=== PATIENT | male | born 1945 | race Caucasian/White ===

== ENCOUNTER → 2020-05-20 | Outpatient (REF) | payer MEDICARE, OTHER ==
[2020-05-20 16:25] LABS: BASO # 0.1 10^3/uL (0.0-0.2); BASO % 0.6 % (0.0-1.0); EOS # 0.3 10^3/uL (0.0-0.5); EOS % 3.5 % (0.0-3.0); HEMATOCRIT 38.8 % (42.0-52.0); HEMOGLOBIN 13.1 g/dl (13.5-17.5); LYMPH # 1.9 10^3/uL (1.5-5.0); MEAN CORPUSCULAR HEMOGLOBIN 32.2 pg (27.0-33.0); MEAN CORPUSCULAR HGB CONC 33.8 g/dl (32.0-36.5); MEAN CORPUSCULAR VOLUME 95.3 fl (80.0-96.0); MONO # 0.7 10^3/uL (0.0-0.8); MONO % 8.1 % (0.0-5.0); NEUTROPHILS # 5.3 10^3/uL (1.5-8.5); NEUTROPHILS % 64.6 % (36.0-66.0); PLATELET COUNT, AUTOMATED 171 10^3/uL (150-450); RED BLOOD COUNT 4.07 10^6/uL (4.30-6.10); WHITE BLOOD COUNT 8.3 10^3/uL (4.0-10.0)
[2020-05-20 17:04] LABS: ALBUMIN 3.8 GM/DL (3.2-5.2); BILIRUBIN,TOTAL 0.4 MG/DL (0.2-1.0); CALCIUM LEVEL 9.3 MG/DL (8.8-10.2); CHOLESTEROL RISK RATIO 3.837 (<5); CREATININE FOR GFR 1.62 MG/DL (0.70-1.30); FREE T4 0.97 NG/DL (0.76-1.46); GLOMERULAR FILTRATION RATE 44.8 (>42); POTASSIUM SERUM 4.6 MEQ/L (3.5-5.1); THYROID STIMULATING HORMONE 0.608 uIU/ML (0.358-3.740); TOTAL PROTEIN 6.9 GM/DL (6.4-8.2)
[2020-05-20 17:13] LABS: MAU/CREAT RATIO 138.6 MCG/MG (0.0-30.0)
== END ==
LOC: M SFHCADAM 15:02
PROVIDERS: ATTEND Physician Assistant
DX: E11.9 Type 2 diabetes mellitus without complications (principal); I10 Essential (primary) hypertension; E78.00 Pure hypercholesterolemia, unspecified; Z12.5 Encounter for screening for malignant neoplasm of prostate; Z23 Encounter for immunization
CPT/HCPCS: 80053; 80061; 82043; 83036; 84439; 84443; 85025; 90732; G0009; G0103; G0463

== ENCOUNTER → 2020-10-06 | Outpatient (REF) | payer MEDICARE, OTHER ==
[2020-10-06 14:03] LABS: CALCIUM LEVEL 9.8 MG/DL (8.8-10.2); CREATININE FOR GFR 1.75 MG/DL (0.70-1.30); POTASSIUM SERUM 4.4 MEQ/L (3.5-5.1)
== END ==
LOC: M SFHCADAM 08:41
PROVIDERS: ATTEND Physician Assistant
DX: E11.9 Type 2 diabetes mellitus without complications (principal); I10 Essential (primary) hypertension

== ENCOUNTER → 2020-11-09 | Outpatient (CLI) | payer MEDICARE, OTHER ==
--- NOTE | 2020-11-09 14:00 | REP ---
INDICATION: STAGE 3B CHRONIC KIDNEY DISEASE. COMPARISON: None. TECHNIQUE: Urinary tract sonography. FINDINGS: Scanning at the level of the urinary bladder shows no abnormality. Urinary bladder had just been emptied prior to scanning. Renal cortical echogenicity pattern is normal bilaterally and contours are smooth. There is no evidence of hydronephrosis on either side. There is a large cyst at the lower pole the right kidney measuring 8.9 x 6.6 x 7.6 cm.. Incidental note is made of cholelithiasis. The right kidney measures 11.0 x 4.5 x 4.1 cm exclusive of the cyst.. Left renal dimensions are 10.6 x 3.8 x 4.8 cm. IMPRESSION: There is an 8.9 cm cyst in the lower pole the right kidney. Cholelithiasis is observed. Otherwise negative urinary tract sonography.. <Electronically signed by Ismael Ramirez > 11/09/20 0521
== END ==
LOC: M RAD 09:46
PROVIDERS: ATTEND Physician Assistant
DX: N28.1 Cyst of kidney, acquired (principal); K80.20 Calculus of gallbladder without cholecystitis without obstruction; N18.32 Chronic kidney disease, stage 3b

== ENCOUNTER → 2020-11-10 | Outpatient (REF) | payer MEDICARE, OTHER ==
[2020-11-10 12:51] LABS: HEMATOCRIT 39.4 % (42.0-52.0); HEMOGLOBIN 13.6 g/dl (13.5-17.5); MEAN CORPUSCULAR HEMOGLOBIN 32.5 pg (27.0-33.0); MEAN CORPUSCULAR HGB CONC 34.5 g/dl (32.0-36.5); MEAN CORPUSCULAR VOLUME 94.3 fl (80.0-96.0); PLATELET COUNT, AUTOMATED 172 10^3/uL (150-450); RED BLOOD COUNT 4.18 10^6/uL (4.30-6.10); WHITE BLOOD COUNT 7.2 10^3/uL (4.0-10.0)
[2020-11-10 13:25] LABS: CALCIUM LEVEL 9.4 MG/DL (8.8-10.2); CREATININE FOR GFR 1.52 MG/DL (0.70-1.30); GLOMERULAR FILTRATION RATE 48.1 (>42); POTASSIUM SERUM 4.2 MEQ/L (3.5-5.1)
== END ==
LOC: M SFHCADAM 08:23
PROVIDERS: ATTEND Physician Assistant
DX: I12.9 Hypertensive chronic kidney disease with stage 1 through stage 4 chronic kidney disease, or unspecified chronic kidney disease (principal); N18.32 Chronic kidney disease, stage 3b; E11.22 Type 2 diabetes mellitus with diabetic chronic kidney disease

== ENCOUNTER → 2021-02-08 | Outpatient (REF) | payer MEDICARE, OTHER ==
[2021-02-08 12:36] LABS: HEMATOCRIT 40.7 % (42.0-52.0); HEMOGLOBIN 13.6 g/dl (13.5-17.5); MEAN CORPUSCULAR HEMOGLOBIN 31.5 pg (27.0-33.0); MEAN CORPUSCULAR HGB CONC 33.4 g/dl (32.0-36.5); MEAN CORPUSCULAR VOLUME 94.2 fl (80.0-96.0); PLATELET COUNT, AUTOMATED 145 10^3/uL (150-450); RED BLOOD COUNT 4.32 10^6/uL (4.30-6.10); WHITE BLOOD COUNT 7.7 10^3/uL (4.0-10.0)
[2021-02-08 12:59] LABS: CALCIUM LEVEL 8.6 MG/DL (8.8-10.2); CREATININE FOR GFR 1.57 MG/DL (0.70-1.30); GLOMERULAR FILTRATION RATE 46.3 (>42); POTASSIUM SERUM 4.3 MEQ/L (3.5-5.1)
== END ==
LOC: M SFHCADAM 08:20
PROVIDERS: ATTEND Physician Assistant
DX: E11.22 Type 2 diabetes mellitus with diabetic chronic kidney disease (principal); N18.32 Chronic kidney disease, stage 3b

== ENCOUNTER → 2021-04-13 | Outpatient (REF) | payer MEDICARE, OTHER ==
[2021-04-13 13:18] LABS: CALCIUM LEVEL 9.6 MG/DL (8.8-10.2); CREATININE FOR GFR 1.71 MG/DL (0.70-1.30); POTASSIUM SERUM 4.5 MEQ/L (3.5-5.1)
[2021-04-13 13:24] LABS: HEMOGLOBIN A1c 8.6 %
== END ==
LOC: M SFHCADAM 07:46
PROVIDERS: ATTEND Physician Assistant
DX: E11.22 Type 2 diabetes mellitus with diabetic chronic kidney disease (principal); N18.32 Chronic kidney disease, stage 3b

== ENCOUNTER → 2021-04-27 | Outpatient (CLI) | payer MEDICARE, OTHER ==
[~2021-04-27] MED LIST: ATOR1TAB21 PO; GABA-282 PO; LANTINJ4 SQ; LISI10TA22 PO; OMEP-218 PO
== END ==
LOC: M LABSMTC 09:33
PROVIDERS: ATTEND Anesthesiology
DX: Z01.818 Encounter for other preprocedural examination (principal); Z11.52 Encounter for screening for COVID-19

== ENCOUNTER 2021-04-29 06:20 | Day surgery (SDC) | payer MEDICARE, OTHER ==
[~2021-04-29] VITALS: Ht 170.2 cm; Wt 87.2 kg
[~2021-04-29 06:20] MED LIST changes: +BSS IRR 500ML/OMIDRIA 4ML IRR BAG (OR ONLY) IO ONE; +CEFUROXIME 1MG/0.1ML INTRACAMERAL INJ ICAM ONE; +OFLOXACIN 0.3 % (OCUFLOX) OPTH SOL 5ML OD SCH; +PHENYLEPHRINE 2.5% OPHTH SOL 2ML OD SCH; +PROPARACAINE 0.5% OPHTH SOL 15ML OD ONE; +TROPICAMIDE 1% OPHTH SOLN 2ML OD SCH
[2021-04-29] MEDS ORDERED: DUOVISC (0.50ML VISCOAT/0.85ML PROVISC) OPHTH KIT As Ordered ONE (06:50)
[2021-04-29] MEDS ORDERED: LIDOCAINE 1% SDV 5ML VIAL As Ordered ONE (06:50)
[2021-04-29] MEDS ORDERED: MIDAZOLAM INJ 2MG/2ML VIAL (J2250 PER 1MG) As Ordered ONE (07:14)
[2021-04-29] MEDS ORDERED: BSS IRR 500ML/OMIDRIA 4ML IRR BAG (OR ONLY) As Ordered ONE (07:31)
[2021-04-29] MEDS ORDERED: CEFUROXIME 1MG/0.1ML INTRACAMERAL INJ As Ordered ONE (07:31)
[2021-04-29 09:25] VITALS: BP 133/65
--- NOTE | 2021-04-29 15:55 | ROOPDOC ---
[facility] Report Of Operation Report of Operation DATE OF PROCEDURE: 04/29/21 PREPROCEDURE DIAGNOSES: Mature cataract right eye. POSTPROCEDURE DIAGNOSES: Same. PROCEDURE PERFORMED: Phacoemulsification cataract extraction implantation intraocular lens right eye. SURGEON: Ahmet Colon MD SURGICAL INSTRUMENT MECHANIC: None ANESTHESIA: MAC. ESTIMATED BLOOD LOSS: Approximately 0 cc mL. COMPLICATIONS: None. LENS: 27.0. diopters SPECIMENS REMOVED: None INDICATIONS: Patient experienced decreased vision associated with cataract formation. Slit-lamp examination confirmed the diagnosis. Informed consent was obtained for removal of the cataract and placement of intraocular lens. PROCEDURE NOTE: Patient was identified in the holding room and the operative eye was marked. Patient was wheeled spine the OR suite and positioned on the stretcher. The lids lashes and periocular face of the operative eye were prepped with 5% povidone iodine. The lashes were taped with a Tegaderm dressing. A speculum was placed in the operative eye. 1 mm side-port was created. 1% preservative-free lidocaine was injected. Viscoat was injected. A 2.6 mm stepped groove clear cornea incision was made temporally. A bent cystotome needle and Utrata forceps were used to fashion a continuous curvilinear capsulorhexis. BSS was used to hydrodissect. The lens was found to rotate freely. The lens was phacoemulsified using a divide and conquer technique. Residual cortex was removed with the I/A. Provisc was injected to expand the capsular bag. The lens was injected using the lens delivery system and positioned with a Sharif hook. Residual viscoelastic was removed with the I/A. BSS was used to hydrate the corneal wound. Antibiotic prophylaxis was injected. The speculum was removed from the eye. A shield was taped over the eye. The patient was sent in excellent condition to the recovery room with a shield. AHMET COLON M.D. Apr 29, 2021 15:55
== END 2021-04-29 09:32 | disposition home or self-care (01) ==
LOC: M SDC 06:20
PROVIDERS: ATTEND Ophthalmology
DX: H25.11 Age-related nuclear cataract, right eye (principal); E11.22 Type 2 diabetes mellitus with diabetic chronic kidney disease; E11.40 Type 2 diabetes mellitus with diabetic neuropathy, unspecified; E78.5 Hyperlipidemia, unspecified; I12.9 Hypertensive chronic kidney disease with stage 1 through stage 4 chronic kidney disease, or unspecified chronic kidney disease; I25.10 Atherosclerotic heart disease of native coronary artery without angina pectoris; I25.2 Old myocardial infarction; M48.00 Spinal stenosis, site unspecified; K21.9 Gastro-esophageal reflux disease without esophagitis; N18.32 Chronic kidney disease, stage 3b; Z79.899 Other long term (current) drug therapy; Z79.4 Long term (current) use of insulin; Z88.2 Allergy status to sulfonamides
CPT/HCPCS: 66984; J1097; J2250; V2632

== ENCOUNTER → 2021-05-02 | Outpatient (REF) | payer MEDICARE, OTHER ==
[~2021-05-02] MED LIST changes: -BSS IRR 500ML/OMIDRIA 4ML IRR BAG (OR ONLY) IO ONE; -CEFUROXIME 1MG/0.1ML INTRACAMERAL INJ ICAM ONE; -OFLOXACIN 0.3 % (OCUFLOX) OPTH SOL 5ML OD SCH; -PHENYLEPHRINE 2.5% OPHTH SOL 2ML OD SCH; -PROPARACAINE 0.5% OPHTH SOL 15ML OD ONE; -TROPICAMIDE 1% OPHTH SOLN 2ML OD SCH
[2021-05-02 12:38] LABS: HEMATOCRIT 42.2 % (42.0-52.0); HEMOGLOBIN 13.9 g/dl (13.5-17.5); MEAN CORPUSCULAR HEMOGLOBIN 31.2 pg (27.0-33.0); MEAN CORPUSCULAR HGB CONC 32.9 g/dl (32.0-36.5); MEAN CORPUSCULAR VOLUME 94.8 fl (80.0-96.0); PLATELET COUNT, AUTOMATED 157 10^3/uL (150-450); RED BLOOD COUNT 4.45 10^6/uL (4.30-6.10); WHITE BLOOD COUNT 6.9 10^3/uL (4.0-10.0)
[2021-05-02 16:43] LABS: ALBUMIN 3.6 GM/DL (3.2-5.2); BILIRUBIN,TOTAL 0.5 MG/DL (0.2-1.0); CREATININE FOR GFR 1.71 MG/DL (0.70-1.30); POTASSIUM SERUM 4.3 MEQ/L (3.5-5.1); TOTAL PROTEIN 6.5 GM/DL (6.4-8.2)
[2021-05-02 18:59] LABS: HEMOGLOBIN A1c 7.8 %
== END ==
LOC: M SFHCADAM 07:53
PROVIDERS: ATTEND Physician Assistant
DX: E11.22 Type 2 diabetes mellitus with diabetic chronic kidney disease (principal); N18.32 Chronic kidney disease, stage 3b

== ENCOUNTER → 2021-06-06 | Outpatient (CLI) | payer MEDICARE, OTHER | LOC: M LABSMTC 09:21 | PROVIDERS: ATTEND Anesthesiology | DX: Z01.812 Encounter for preprocedural laboratory examination (principal); Z20.822 Contact with and (suspected) exposure to COVID-19 ==

== ENCOUNTER 2021-06-10 06:08 | Day surgery (SDC) | payer MEDICARE, OTHER ==
[~2021-06-10] VITALS: Ht 167.6 cm; Wt 86.6 kg
[~2021-06-10 06:08] MED LIST changes: +PROPARACAINE 0.5% OPHTH SOL 15ML OS ONE
--- OUTSIDE RECORDS SUMMARY | 2021-06-10 06:10 | CCD ---
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32 Active confirmed 062821801 Problem Stage 3b chronic kidney disease N18.32 Active confi rmed 820498345 Problem Type 2 diabetes mellitus with diabetic chronic kidney disease E11.22 Active confirmed 163177118 Problem Low back pain M54.5 Active confirmed 882630 009 ALLERGIES Allergen (clinical drug ingredient) Drug/Non Drug Allergy do cumented on EMR Reaction Allergy Type Onset Date Status Sulfa (for allergy use only) Anaphylaxis Drug Allergy Active ENCOUNTERS from 1945 to 2021-05-07 Encounter Location Date Provider Diagnosis [facility] [address] [place] [address] Apr, Ania Fernandez Type 2 diabetes mellitus with diabetic c hronic kidney disease E11.22 ; Chronic kidney disease, stage 3b N18.32 ; Microalbuminuria R80.9 and Essential hypertension I10 IMMUNIZATIONS Vaccine Route Administration Date Status COVID-19 dose #2 given elsewhere Unspecified Unknown Oct 09, 2020 Administered COVID-19 dose #1 given elsewhere Unspecified Unknown Sep 18, 2020 Administered Pneumococcal Adult 0.5mL Pneumovax 23 IM Intramuscular May 20 Administered SOCIAL HISTORY Tobacco Use: Social History Observation Description Date Details (start date - stop date) Former Smoker Sex Assigned At : Social History Observation Description Sex Assigned At Unknown Audit Question Answer Notes Total Score: 0 Interpretation: Alcohol Education Language: Question Answer Notes Languages spoken: Romansh Domestic Violence: Question Answer Notes Status: Drug and Alcohol Question Answer Notes Total Score: 0 Interpretation: No problems reported Alcohol Screening: Question Answer Notes Did you have a drink containing alcohol in the past year? No Points 0 Interpretation Negative Tobacco Use: Question Answer Notes Are you a: former smoker How long has it been since you last smoked? > 10 years REASON FOR REFERRAL No Information VITAL SIGNS Weight 196 lbs Apr, Height 65.5 in Apr, BMI 32.12 kg/m2 Apr, Heart Rate 78 /min Apr, Respiratory Rate 18 /min Apr, Temperature 98.6 degrees Fahrenheit Apr, Oximetry 95 Apr, Blood pressure systolic 120 mm Hg Apr, Blood pressure diastolic 78 mm Hg Apr, MEDICATIONS Medication SIG (Take, Route, Frequency, Duration) Notes Start Da te End Date Status Sure Comfort Pen Dixon 31G X 5 MM USE 1 NEEDLE ONCE DAILY Active Atorvastatin Calcium 20 MG 1 tablet Oral Daily for 90 days Active Lisinopril 10 MG 1 tablet Orally Once a day with 20 mg tablet Sep, Active Glucometer as directed dx. E11.9 Jan, A ctive Lisinopril 20 MG 1 (prior auth#:[id number]) Oral daily with 10 mg t ab Active FreeStyle Lite Test - as directed In Vitro DX:E11.9 bid for 100 days Jan, Active Lantus SoloStar 100 UNIT/ML 35 units Subcutaneous Daily for 90 days Active Omeprazole 20 MG 1 capsule 30 minutes before morning meal Orally Once a day for 90 days Active Gabapentin 300 MG 1 capsule Orally three times a day for 90 days Jan, Active PROCEDURES No Information RESULTS No Results REASON FOR VISIT 3 month lab follow up MEDICAL (GENERAL) HISTORY Type Description Date Medical History Diabetes on Insulin - Diagn osed ~ 2016 - Did not toerate oral meds Medical History Hyperlipidemia Medical History HTN Medical History CAD s/p [place] 1994 Medical History Osteoarthritis Medical History Spinal Stenosis - Diagnosed in [place] - declined surgical management Medical History GERD Medical History CKD stage 3b Surgical History knee surgery right 1966 Surgical History Lasix Surgery Bilateral 1966 Surgical History cataract removal-right 04/29/21 Hospitalization History [place] Stress Related 1996 Goals Section No Information Health Concerns No Information MEDICAL EQUIPMENT No Information MENTAL STATUS No Information FUNCTIONAL STATUS No Information ASSESSMENTS Encounter Date Diagnosis Assessment Notes Treatment Notes Treatm ent Clinical Notes Apr, Type 2 diabetes mellitus wit h diabetic chronic kidney disease (ICD- 10 - E11.22) HbA1c improving. COntinue current regimen for now Apr, Chronic kidney disease, stage 3b (ICD-10 - N18.3 2) Continue to monitor trend. If declines further, will refer to Nephrology Apr, Microalbuminuria (ICD-10 - R80.9) Apr, Essential hypertension (ICD-10 - I10) Blood pressure is stable on meds. Continue current management. Attempt to follow DASH diet (lots of fruit, vegetable and low-fat dairy, low in saturated fat). Reduce salt to less than 2.4 grams/day. Engage in aerobic activities for 30 minutes on most days. Maintain a healthy weight. Limit alcohol intake to one drink a day PLAN OF TREATMENT Medication Medication Name Sig Start Date Stop Date Lisinopril 10 MG 1 tablet Orally Once a day with 20 mg tablet Sep, Lantus SoloStar 100 UNIT/ML 35 units Subcutaneous Daily for 90 d ays Lisinopril 20 MG 1 (prior auth#:[id number]) Oral daily with 10 mg tab Treatment Notes Assessment Notes Clinical Notes Type 2 diabetes mellitus with diabetic chronic kidney diseas e HbA1c improving. COntinue current regimen for now Chronic kidney disease, stage 3b Continu e to monitor trend. If declines further, will refer to Nephrology Essential hypertension Blood pressure is stable on meds. Continue current management. Attempt to follow DASH diet (lots of fruit, vegetable and low-fat dairy, low in saturated fat). Reduce salt to less than 2.4 grams/day. Engage in aerobic activities for 30 minutes on most days. Maintain a healthy weight. Limit alcohol intake to one drink a day Future Test Test Name Order Date CBC - Complete Blood Count [id number] Comprehensive Metabolic Profile (CMP) [id number] HEMOGLOBIN A1c [id number] Next Appt Details 3 Months, labs prior Reason: Provider Name:Ania Fernandez, 2021-07 09:00:00 AM, [address], , [place], [address], Insurance Providers Payer Name Payer Address Payer Phone Insured Name Patient Relati onship to Insured Coverage Start Date Coverage End Date [facility] [address] [facility] [phone] LANDRY ARRIAZA MEDICARE Part A and B [address] [facility] [phone] LANDRY ARRIAZA
--- OUTSIDE RECORDS SUMMARY | 2021-06-10 06:11 | CCD ---
Author Author [facility] Organization 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.062 Active confirmed 33786671 Problem technician terminal and repeater (current) use of insulin Z79.4 Activ e confirmed 990753645 Problem Type 2 diabetes mellitus without complications E11 .9 Active confirmed 421198256 Problem Microalbuminuria R80.9 Active confirmed 312 078282 Problem Other chronic pain G89.29 Active confirmed 8 9895066 Problem Essential hypertension I10 Active confirmed 92974556 Problem Gastroesophageal reflux disease without esophagitis K21.9 Active confirmed 809678885 Problem Need for pneumococcal vaccine Z23 Active confirm ed 131579106 Problem Chronic kidney disease, stage 3b N18.32 Active confirmed 872525329 Problem Stage 3b chronic kidney disease N18.32 Active confi rmed 600597528 Problem Type 2 diabetes mellitus with diabetic chronic kidney disease E11.22 Active confirmed 877463287 Problem Low back pain M54.5 Active confirmed 669580 009 ALLERGIES Allergen (clinical drug ingredient) Drug/Non Drug Allergy do cumented on EMR Reaction Allergy Type Onset Date Status Sulfa (for allergy use only) Anaphylaxis Drug Allergy Active ENCOUNTERS from 1945 to 2021-03-30 Encounter Location Date Provider Diagnosis [facility] [address] [place] [address] Mar, Ania Fernandez IMMUNIZATIONS Vaccine Route Administration Date Status COVID-19 [...] Education Language: Question Answer Notes Languages spoken: German Domestic Violence: Question Answer Notes Status: Drug [...] REASON FOR REFERRAL No Information VITAL SIGNS No information MEDICATIONS Medication SIG (Take, Route, Frequency, Duration) Notes Start Da te End Date Status Lantus SoloStar 100 UNIT/ML 40 units Subcutaneous Daily Active FreeStyle Lite Test - as directed In Vitro DX:E11.9 bid for 100 days Jan, Active Glucometer as directed dx. E11.9 Jan, A ctive Atorvastatin Calcium 20 MG 1 tablet Oral Daily for 90 days Active Omeprazole 20 MG 1 capsule 30 minutes before morning meal Orally Once a day for 90 days Active Lisinopril 10 MG 1 tablet Orally Once a day with 20 mg tablet fo r 90 days Sep, Active Lisinopril 20 MG 1 (prior auth#:[id number]) Oral daily with 10 mg tab for 90 days Active Sure Comfort Pen O'Brien 31G X 5 MM USE 1 NEEDLE ONCE DAILY Active Gabapentin 300 MG 1 capsule Orally three times a day for 90 days Jan, Active PROCEDURES No Information RESULTS No Results REASON FOR VISIT weekly blood count MEDICAL (GENERAL) HISTORY Type Description Date Medical History Diabetes on Insulin - Diagn osed ~ 2015 - Did not toerate oral meds Medical History Hyperlipidemia Medical History HTN Medical History CAD s/p [place] 1994 Medical History Osteoarthritis Medical History Spinal Stenosis - Diagnosed in [place] - declined surgical management Medical History GERD Medical History CKD stage 3b Surgical History knee surgery right 1967 Surgical History Lasix Surgery Bilateral 1967 Hospitalization History [place] Stress Related 1996 Goals Section No Information Health Concerns No Information MEDICAL EQUIPMENT No Information MENTAL STATUS No Information FUNCTIONAL STATUS No Information ASSESSMENTS No Information PLAN OF TREATMENT Medication Medication Name Sig Start Date Stop Date Lantus VerenaoStar 100 UNIT/ML 40 units Subcutaneous Daily Lisinopril 20 MG 1 (prior auth#:[id number]) Oral daily with 10 mg tab for 90 days Sure Comfort Pen O'Brien 31G X 5 MM USE 1 NEEDLE ONCE DAILY Lisinopril 10 MG 1 tablet Orally Once a day with 20 mg ta blet for 90 days Sep, FreeStyle Lite Test - as directed In Vitro DX:E11.9 bid for 100 days Jan, Glucometer as directed dx. E11.9 Jan, Atorvastatin Calcium 20 MG 1 tablet Oral Daily for 90 days Omeprazole 20 MG 1 capsule 30 minutes before morning meal Orally Once a day for 90 days Gabapentin 300 MG 1 capsule Orally three times a day for 90 days Jan, Next Appt Details Provider Name:Ania Fernandez, 2021-03 10:30:00 AM, [address], , [place], [address], Provider Name:Ania Fernandez, 2021-04 09:00:00 AM, [address], , [place], [address], Insurance Providers Payer Name Payer Address Payer Phone Insured Name Patient Relati onship to Insured Coverage Start Date Coverage End Date MEDICARE Part A and B [address] [facility] [id number] LANDRY ARRIAZA FOR LIFE [address] [facility] [address] LANDRY ARRIAZA
--- OUTSIDE RECORDS SUMMARY | 2021-06-10 06:11 | CCD ---
Author Author [facility] Organization [facility] Address Unknown Phone Unavailable Support Name Relationship Address Phone RE Next Of Kin Unknown Unavailable FLORIDALMA POLANCOMULU GANNONY Next Of Kin [phone] [place] [address] CARMEN ARRIAZA Next Of Kin [id number] [place] [address] FLORIDALMA ARRIAZA CARMEN ECON [id number] [facility] [place] [address] Unavailable MULU ARRIAZAY ECON [phone] [employer] [place] [address] Re-disclosure Warning The records that you are about to access may contain information from federally-assisted alcohol or drug abuse programs. If such information is present, then the following federally mandated warning applies: This information has been disclosed to you from records protected by federal confidentiality rules (42 CFR part 2). The federal rules prohibit you from making any further disclosure of this information unless further disclosure is expressly permitted by the written consent of the person to whom it pertains or as otherwise permitted by 42 CFR part 2. A general authorization for the release of medical or other information is NOT sufficient for this purpose. The Federal rules restrict any use of the information to criminally investigate or prosecute any alcohol or drug abuse patient.The records that you are about to access may contain highly sensitive health information, the redisclosure of which is protected by Article 27-F of the [facility] Public Health law. If you continue you may have access to information: Regarding HIV / AIDS; Provided by facilities licensed or operated by the [facility] Office of Mental Health; or Provided by the [facility] Office for People With Developmental Disabilities. If such information is present, then the following [facility] mandated warning applies: This information has been disclosed to you from confidential records which are protected by state law. State law prohibits you from making any further disclosure of this information without the specific written consent of the person to whom it pertains, or as otherwise permitted by law. Any unauthorized further disclosure in violation of state law may result in a fine or mcc sentence or both. A general authorization for the release of medical or other information is NOT sufficient authorization for further disc losure. Encounters Encounter Providers Location Date Indications Data Source(s ) Outpatient [address] [facility] [place] [address] 05/04/2021 12:00:00 AM EDT eCW1 ([facility] Office Visit, Est Pt., Level 4 PC [address] [place] [address] 04/15/2021 12:00:00 AM EDT eCW1 ([facility]) Unknown [address] [facility] [place] [address] 03/29/2021 12:00:00 AM EDT eCW1 (Critical access hospital) Unknown [address] [facility] [place] [address] 03/22/2021 12:00:00 AM EDT eCW1 (Critical access hospital) Unknown [address] [facility] [place] [address] 03/07/2021 12:00:00 AM EDT eCW1 (Critical access hospital) Unknown [address] [facility] [place] [address] 02/25/2021 12:00:00 AM EDT eCW1 (Critical access hospital) Unknown [address] [facility] [place] [address] 02/23/2021 12:00:00 AM EDT eCW1 (Critical access hospital) Unknown [address] [facility] [place] [address] 02/16/2021 12:00:00 AM EDT eCW1 (Critical access hospital) Unknown [address] [facility] [place] [address] 02/15/2021 12:00:00 AM EDT eCW1 (Critical access hospital) Unknown [address] [facility] [place] [address] 02/11/2021 12:00:00 AM EDT eCW1 (Critical access hospital) [place] [address] [facility] [place] [address] 02/11/2021 12:00:00 AM EDT eCW1 (Critical access hospital) Office Visit, Est Pt., Level 3 PC [address] [place] [address] 02/10/2021 12:00:00 AM EDT eCW1 ([facility]) Office Visit, Est Pt., Level 4 PC [address] [place] [address] 11/12/2020 12:00:00 AM EDT eCW1 ([facility]) Office Visit, Est Pt., Level 4 PC [address] [place] [address] 10/15/2020 12:00:00 AM EST eCW1 ([facility]) Unknown [address] [facility] [place] [address] 09/20/2020 12:00:00 AM EST eCW1 (Critical access hospital) [place]patient [address] [facility] [place] [address] 09/03/2020 12:00:00 AM EST eCW1 (Critical access hospital) [place]patient [address] [facility] [place] [address] 05/20/2020 12:00:00 AM EDT eCW1 (Critical access hospital) Immunizations Vaccine Date Status Description Data Source(s) COVID-19 dose #2 given elsewhere Unspecified 10/09/2020 09:3 3:00 AM EST completed eCW1 (Critical access hospital) COVID-19 dose #2 given elsewhere Unspecified 10/09/2020 09:3 3:00 AM EST completed eCW1 (Critical access hospital) COVID-19 dose #2 given elsewhere Unspecified 10/09/2020 09:3 3:00 AM EST completed eCW1 (Critical access hospital) COVID-19 dose #2 given elsewhere Unspecified 10/09/2020 09:3 3:00 AM EST completed eCW1 (Critical access hospital) COVID-19 dose #2 given elsewhere Unspecified 10/09/2020 09:3 3:00 AM EST completed eCW1 (Critical access hospital) COVID-19 dose #2 given elsewhere Unspecified 10/09/2020 09:3 3:00 AM EST completed eCW1 (Critical access hospital) COVID-19 dose #2 given elsewhere Unspecified 10/09/2020 09:3 3:00 AM EST completed eCW1 (Critical access hospital) COVID-19 dose #2 given elsewhere Unspecified 10/09/2020 09:3 3:00 AM EST completed eCW1 (Critical access hospital) COVID-19 dose #2 given elsewhere Unspecified 10/09/2020 09:3 3:00 AM EST completed eCW1 (Critical access hospital) COVID-19 dose #2 given elsewhere Unspecified 10/09/2020 09:3 3:00 AM EST completed eCW1 (Critical access hospital) COVID-19 dose #2 given elsewhere Unspecified 10/09/2020 09:3 3:00 AM EST completed eCW1 (Critical access hospital) COVID-19 dose #2 given elsewhere Unspecified 10/09/2020 09:3 3:00 AM EST completed eCW1 (Critical access hospital) COVID-19 dose #2 given elsewhere Unspecified 10/09/2020 09:3 3:00 AM EST completed eCW1 (Critical access hospital) COVID-19 dose #2 given elsewhere Unspecified 10/09/2020 09:3 3:00 AM EST completed eCW1 (Critical access hospital) COVID-19 VACCINE Pfizer 10/09/2020 12:00:00 AM EST completed [facility] Vaccine Series Complete: YESThis Data wa s Submitted to [facility] Via [employer]. COVID-19 dose #1 given elsewhere Unspecified 09/18/2020 09:3 2:00 AM EST completed eCW1 (Critical access hospital) COVID-19 dose #1 given elsewhere Unspecified 09/18/2020 09:3 2:00 AM EST completed eCW1 (Critical access hospital) COVID-19 dose #1 given elsewhere Unspecified 09/18/2020 09:3 2:00 AM EST completed eCW1 (Critical access hospital) COVID-19 dose #1 given elsewhere Unspecified 09/18/2020 09:3 2:00 AM EST completed eCW1 (Critical access hospital) COVID-19 dose #1 given elsewhere Unspecified 09/18/2020 09:3 2:00 AM EST completed eCW1 (Critical access hospital) COVID-19 dose #1 given elsewhere Unspecified 09/18/2020 09:3 2:00 AM EST completed eCW1 (Critical access hospital) COVID-19 dose #1 given elsewhere Unspecified 09/18/2020 09:3 2:00 AM EST completed eCW1 (Critical access hospital) COVID-19 dose #1 given elsewhere Unspecified 09/18/2020 09:3 2:00 AM EST completed eCW1 (Critical access hospital) COVID-19 dose #1 given elsewhere Unspecified 09/18/2020 09:3 2:00 AM EST completed eCW1 (Critical access hospital) COVID-19 dose #1 given elsewhere Unspecified 09/18/2020 09:3 2:00 AM EST completed eCW1 (Critical access hospital) COVID-19 dose #1 given elsewhere Unspecified 09/18/2020 09:3 2:00 AM EST completed eCW1 (Critical access hospital) COVID-19 dose #1 given elsewhere Unspecified 09/18/2020 09:3 2:00 AM EST completed eCW1 (Critical access hospital) COVID-19 dose #1 given elsewhere Unspecified 09/18/2020 09:3 2:00 AM EST completed eCW1 (Critical access hospital) COVID-19 dose #1 given elsewhere Unspecified 09/18/2020 09:3 2:00 AM EST completed eCW1 (Critical access hospital) COVID-19 VACCINE Pfizer 09/18/2020 12:00:00 AM EST completed [facility] Vaccine Series Complete: NOThis Data was Submitted to [facility] Via [employer]. pneumococcal polysaccharide PPV23 05/20/2020 03:01:00 PM EDT comple beatriz eCW1 ([facility]) pneumococcal polysaccharide PPV23 05/20/2020 03:01:00 PM EDT comple beatriz eCW1 ([facility]) pneumococcal polysaccharide PPV23 05/20/2020 03:01:00 PM EDT comple beatriz eCW1 ([facility]) pneumococcal polysaccharide PPV23 05/20/2020 03:01:00 PM EDT comple beatriz eCW1 ([facility]) pneumococcal polysaccharide PPV23 05/20/2020 03:01:00 PM EDT comple beatriz eCW1 ([facility]) pneumococcal polysaccharide PPV23 05/20/2020 03:01:00 PM EDT comple beatriz eCW1 ([facility]) pneumococcal polysaccharide PPV23 05/20/2020 03:01:00 PM EDT comple beatriz eCW1 ([facility]) pneumococcal polysaccharide PPV23 05/20/2020 03:01:00 PM EDT comple beatriz eCW1 ([facility]) pneumococcal polysaccharide PPV23 05/20/2020 03:01:00 PM EDT comple beatriz eCW1 ([facility]) pneumococcal polysaccharide PPV23 05/20/2020 03:01:00 PM EDT comple beatriz eCW1 ([facility]) pneumococcal polysaccharide PPV23 05/20/2020 03:01:00 PM EDT comple beatriz eCW1 ([facility]) pneumococcal polysaccharide PPV23 05/20/2020 03:01:00 PM EDT comple beatriz eCW1 ([facility]) pneumococcal polysaccharide PPV23 05/20/2020 03:01:00 PM EDT comple beatriz eCW1 ([facility]) pneumococcal polysaccharide PPV23 05/20/2020 03:01:00 PM EDT comple beatriz eCW1 ([facility]) pneumococcal polysaccharide PPV23 05/20/2020 03:01:00 PM EDT comple beatriz eCW1 ([facility]) pneumococcal polysaccharide PPV23 05/20/2020 03:01:00 PM EDT comple beatriz eCW1 ([facility]) pneumococcal polysaccharide PPV23 05/20/2020 03:01:00 PM EDT comple beatriz eCW1 ([facility]) Medications Medication Brand Name Start Date Product Form Dose Route Admi nistrative Instructions Pharmacy Instructions Status Indications Reaction Description Data Source(s) FreeStyle Lite Test - FreeStyle Lite Test - 02/16/2021 12:00:00 AM EDT active FreeStyle Lite Test - eCW1 ( [facility]) FreeStyle Lite Test - FreeStyle Lite Test - 02/16/2021 12:00:00 AM EDT active FreeStyle Lite Test - eCW1 ( [facility]) FreeStyle Lite Test - FreeStyle Lite Test - 02/16/2021 12:00:00 AM EDT active FreeStyle Lite Test - eCW1 ( [facility]) FreeStyle Lite Test - FreeStyle Lite Test - 02/16/2021 12:00:00 AM EDT active FreeStyle Lite Test - eCW1 ( [facility]) FreeStyle Lite Test - FreeStyle Lite Test - 02/16/2021 12:00:00 AM EDT active FreeStyle Lite Test - eCW1 ( [facility]) FreeStyle Lite Test - FreeStyle Lite Test - 02/16/2021 12:00:00 AM EDT active FreeStyle Lite Test - eCW1 ( [facility]) FreeStyle Lite Test - FreeStyle Lite Test - 02/16/2021 12:00:00 AM EDT active FreeStyle Lite Test - eCW1 ( [facility]) FreeStyle Lite Test - FreeStyle Lite Test - 02/16/2021 12:00:00 AM EDT active FreeStyle Lite Test - eCW1 ( [facility]) FreeStyle Lite Test - FreeStyle Lite Test - 02/16/2021 12:00:00 AM EDT active FreeStyle Lite Test - eCW1 ( [facility]) FreeStyle Lite Test - FreeStyle Lite Test - 02/16/2021 12:00:00 AM EDT active FreeStyle Lite Test - eCW1 ( [facility]) BLOOD-GLUCOSE METER 02/12/2021 12:00:00 AM EDT kit 1 USE TWO TIMES A DAY DIRECTED USE TWO TIMES A DAY DIRECTED SOLD: 02/12/2021 [facility] BLOOD SUGAR DIAGNOSTIC 02/12/2021 12:00:00 AM EDT strip 100 USE TWO TIMES A DAY DIRECTED USE TWO TIMES A DAY DIRECTED SOLD: 02/12/2021 [facility] Glucometer UNK 02/11/2021 12:00:00 AM EDT active Glucometer eCW1 ([facility]) Glucometer UNK 02/11/2021 12:00:00 AM EDT active Glucometer eCW1 ([facility]) Glucometer UNK 02/11/2021 12:00:00 AM EDT active Glucometer eCW1 ([facility]) Glucometer UNK 02/11/2021 12:00:00 AM EDT active Glucometer eCW1 ([facility]) Glucometer UNK 02/11/2021 12:00:00 AM EDT active Glucometer eCW1 ([facility]) Glucometer UNK 02/11/2021 12:00:00 AM EDT active Glucometer eCW1 ([facility]) Glucometer UNK 02/11/2021 12:00:00 AM EDT active Glucometer eCW1 ([facility]) Glucometer UNK 02/11/2021 12:00:00 AM EDT active Glucometer eCW1 ([facility]) Glucometer UNK 02/11/2021 12:00:00 AM EDT active Glucometer eCW1 ([facility]) Glucometer UNK 02/11/2021 12:00:00 AM EDT active Glucometer eCW1 ([facility]) Glucometer UNK 02/11/2021 12:00:00 AM EDT active Glucometer eCW1 ([facility]) IGlucose Test Strips - IGlucose Test Strips - 02/11/2021 12:00:00 AM E DT active IGlucose Test Strips - eC W1 ([facility]) Glucometer UNK 02/11/2021 12:00:00 AM EDT active Glucometer eCW1 ([facility]) IGlucose Test Strips - IGlucose Test Strips - 02/11/2021 12:00:00 AM E DT active IGlucose Test Strips - eC W1 ([facility]) gabapentin 300 MG Oral Capsule Gabapentin 300 MG Gabapentin 300 MG 02/10/2021 12:00:00 AM EDT 1.0 {capsule} active G abapentin 300 MG eCW1 ([facility]) gabapentin 300 MG Oral Capsule Gabapentin 300 MG Gabapentin 300 MG 02/10/2021 12:00:00 AM EDT 1.0 {capsule} active G abapentin 300 MG eCW1 ([facility]) gabapentin 300 MG Oral Capsule Gabapentin 300 MG Gabapentin 300 MG 02/10/2021 12:00:00 AM EDT 1.0 {capsule} active G abapentin 300 MG eCW1 ([facility]) gabapentin 300 MG Oral Capsule Gabapentin 300 MG Gabapentin 300 MG 02/10/2021 12:00:00 AM EDT 1.0 {capsule} active G abapentin 300 MG eCW1 ([facility]) gabapentin 300 MG Oral Capsule Gabapentin 300 MG Gabapentin 300 MG 02/10/2021 12:00:00 AM EDT 1.0 {capsule} active G abapentin 300 MG eCW1 ([facility]) gabapentin 300 MG Oral Capsule Gabapentin 300 MG Gabapentin 300 MG 02/10/2021 12:00:00 AM EDT 1.0 {capsule} active G abapentin 300 MG eCW1 ([facility]) gabapentin 300 MG Oral Capsule Gabapentin 300 MG Gabapentin 300 MG 02/10/2021 12:00:00 AM EDT 1.0 {capsule} active G abapentin 300 MG eCW1 ([facility]) gabapentin 300 MG Oral Capsule Gabapentin 300 MG Gabapentin 300 MG 02/10/2021 12:00:00 AM EDT 1.0 {capsule} active G abapentin 300 MG eCW1 ([facility]) gabapentin 300 MG Oral Capsule Gabapentin 300 MG Gabapentin 300 MG 02/10/2021 12:00:00 AM EDT 1.0 {capsule} active G abapentin 300 MG eCW1 ([facility]) gabapentin 300 MG Oral Capsule Gabapentin 300 MG Gabapentin 300 MG 02/10/2021 12:00:00 AM EDT 1.0 {capsule} active G abapentin 300 MG eCW1 ([facility]) gabapentin 300 MG Oral Capsule Gabapentin 300 MG Gabapentin 300 MG 02/10/2021 12:00:00 AM EDT 1.0 {capsule} active G abapentin 300 MG eCW1 ([facility]) gabapentin 300 MG Oral Capsule Gabapentin 300 MG Gabapentin 300 MG 02/10/2021 12:00:00 AM EDT 1.0 {capsule} active G abapentin 300 MG eCW1 ([facility]) Lisinopril 10 MG Oral Tablet Lisinopril 10 MG 09/30/2020 12:00:00 A M EST 1.0 {tablet} active Lisinopril 10 MG eCW1 ( [facility]) Lisinopril 10 MG Oral Tablet Lisinopril 10 MG 09/30/2020 12:00:00 A M EST 1.0 {tablet} active Lisinopril 10 MG eCW1 ( [facility]) Lisinopril 10 MG Oral Tablet Lisinopril 10 MG 09/30/2020 12:00:00 A M EST 1.0 {tablet} active Lisinopril 10 MG eCW1 ( [facility]) Lisinopril 10 MG Oral Tablet Lisinopril 10 MG 09/30/2020 12:00:00 A M EST 1.0 {tablet} active Lisinopril 10 MG eCW1 ( [facility]) Lisinopril 10 MG Oral Tablet Lisinopril 10 MG 09/30/2020 12:00:00 A M EST 1.0 {tablet} active Lisinopril 10 MG eCW1 ( [facility]) Lisinopril 10 MG Oral Tablet Lisinopril 10 MG 09/30/2020 12:00:00 A M EST 1.0 {tablet} active Lisinopril 10 MG eCW1 ( [facility]) Lisinopril 10 MG Oral Tablet Lisinopril 10 MG 09/30/2020 12:00:00 A M EST 1.0 {tablet} active Lisinopril 10 MG eCW1 ( [facility]) Lisinopril 10 MG Oral Tablet Lisinopril 10 MG 09/30/2020 12:00:00 A M EST 1.0 {tablet} active Lisinopril 10 MG eCW1 ( [facility]) Lisinopril 10 MG Oral Tablet Lisinopril 10 MG 09/30/2020 12:00:00 A M EST 1.0 {tablet} active Lisinopril 10 MG eCW1 ( [facility]) Lisinopril 10 MG Oral Tablet Lisinopril 10 MG 09/30/2020 12:00:00 A M EST 1.0 {tablet} active Lisinopril 10 MG eCW1 ( [facility]) Lisinopril 10 MG Oral Tablet Lisinopril 10 MG 09/30/2020 12:00:00 A M EST 1.0 {tablet} active Lisinopril 10 MG eCW1 ( [facility]) Lisinopril 10 MG Oral Tablet Lisinopril 10 MG 09/30/2020 12:00:00 A M EST 1.0 {tablet} active Lisinopril 10 MG eCW1 ( [facility]) Lisinopril 10 MG Oral Tablet Lisinopril 10 MG 09/30/2020 12:00:00 A M EST 1.0 {tablet} active Lisinopril 10 MG eCW1 ( [facility]) Lisinopril 10 MG Oral Tablet Lisinopril 10 MG 09/30/2020 12:00:00 A M EST 1.0 {tablet} active Lisinopril 10 MG eCW1 ( [facility]) Lisinopril 10 MG Oral Tablet Lisinopril 10 MG 09/03/2020 12:00:00 A M EST 1.0 {tablet} active Lisinopril 10 MG eCW1 ( [facility]) gabapentin 100 MG Oral Capsule Gabapentin 100 MG Gabapentin 100 MG 09/03/2020 12:00:00 AM EST 1.0 {capsule} active G abapentin 100 MG eCW1 ([facility]) gabapentin 100 MG Oral Capsule Gabapentin 100 MG Gabapentin 100 MG 09/03/2020 12:00:00 AM EST 1.0 {capsule} active G abapentin 100 MG eCW1 ([facility]) gabapentin 100 MG Oral Capsule Gabapentin 100 MG Gabapentin 100 MG 09/03/2020 12:00:00 AM EST 1.0 {capsule} active G abapentin 100 MG eCW1 ([facility]) 100 mg 09/03/2020 12:00:00 AM EST capsule 90 TAKE ONE CAPSULE BY MOUTH THREE TIMES A DAY TAKE ONE CAPSULE BY MOUTH THREE TIMES A DAY SOLD: 09/03/2020 [facility] gabapentin 100 MG Oral Capsule Gabapentin 100 MG Gabapentin 100 MG 09/03/2020 12:00:00 AM EST 1.0 {capsule} active G abapentin 100 MG eCW1 ([facility]) gabapentin 100 MG Oral Capsule Gabapentin 100 MG Gabapentin 100 MG 09/03/2020 12:00:00 AM EST 1.0 {capsule} active G abapentin 100 MG eCW1 ([facility]) Lisinopril 10 MG Oral Tablet Lisinopril 10 MG 09/03/2020 12:00:00 A M EST 1.0 {tablet} active Lisinopril 10 MG eCW1 ( [facility]) gabapentin 100 MG Oral Capsule Gabapentin 100 MG Gabapentin 100 MG 09/03/2020 12:00:00 AM EST 1.0 {capsule} active G abapentin 100 MG eCW1 ([facility]) Insurance Providers Payer name Policy type / Coverage type Policy ID Covered constitution party ID Covered constitution party's relationship to eaton Policy [employer] Plan Information [employer] LIFE [id number] MEDICARE [id number] Problems, Conditions, and Diagnoses Code Display Name Description Problem Type Effective Dates Data Source(s) K21.9 [id number] Gastroesophageal reflux disease without e sophagitis Problem 10/15/2020 12:00:00 AM EST eCW1 ([facility]) M54.5 [id number] Low back pain Problem 09/03/2020 12:00:00 AM EST eCW1 ([facility]) E11.22 [id number] 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 Problem 09/03/2020 12:00:00 AM EST eCW1 ([facility]) N18.32 [id number] Stage 3b chronic kidney disease Problem 09/03/2020 12:00:00 AM EST eCW1 ([facility]) N18.32 [id number] Chronic kidney disease, stage 3b Problem 09/03/2020 12:00:00 AM EST eCW1 ([facility]) G89.29 [id number] Other chronic pain Problem 09/03/2020 12:00: 00 AM EST eCW1 ([facility]) R80.9 [id number] Microalbuminuria Problem 09/03/2020 12:00:00 AM EST eCW1 ([facility]) Z23 [id number] Need for pneumococcal vaccine Problem 2019 12:00:00 AM EDT eCW1 ([facility]) I10 [id number] Essential hypertension Problem 05/20/2020 12 :00:00 AM EDT eCW1 ([facility]) E11.9 [id number] Type 2 diabetes mellitus without complica tions Problem 05/20/2020 12:00:00 AM EDT eCW1 ([facility]) Z79.4 [id number] MCFP (current) use of insulin Proble m 05/20/2020 12:00:00 AM EDT eCW1 ([facility]) M48.062 74456514 Spinal stenosis of lumbar region with neurogenic claudication Problem 05/20/2020 12:00:00 AM EDT eCW1 ([facility]) E78.00 [id number] Pure hypercholesterolemia Problem 05/20/2020 12:00:00 AM EDT eCW1 ([facility]) M19.09 [id number] Primary osteoarthritis of other site Prob jayjay 05/20/2020 12:00:00 AM EDT eCW1 ([facility]) Surgeries/Procedures Procedure Description Date Indications Data Source(s) HEPATITIS A VACCINE PEDIATRIC 3 DOSE SCHEDULE IM 05/20 12:00:00 AM EDT eCW1 ([facility]) Results ID Date Data Source [id number] 04/27/2021 09:30:00 AM EDT [facility] Name Value Range Interpretation Code Description Data Elma rce(s) Supporting Document(s) SARS-CoV-2 (COVID-19) RNA [Presence] in Respiratory specimen by FABI with probe detection Not Detected [facility] This lab was ordered by [facility] and reported by [facility]. ID Date Data Source LIPID PANEL (CARDIAC RISK) 05/21/2020 06:26:36 AM EDT eCW1 ( [facility]) Name Value Range Interpretation Code Description Data Elma rce(s) Supporting Document(s) Cholesterol [Moles/volume] in Serum or Plasma 165 eCW1 ([facility]) Cholesterol in HDL [Moles/volume] in Serum or Plasma 43 eCW1 ([facility]) Triglyceride [Mass/volume] in Serum or Plasma by calculation 366 eCW1 ([facility]) Cholesterol in LDL [Mass/volume] in Serum or Plasma by calculation 49 eCW1 ([facility]) 3.837 eCW1 ([facility]) 122 eCW1 ([facility]) ID Date Data Source [id number] 05/21/2020 06:26:30 AM EDT eCW1 ([facility]) Name Value Range Interpretation Code Description Data Elma rce(s) Supporting Document(s) Microalbumin/Creatinine [Mass Ratio] in Urine 215.0 eCW1 ([facility]) Albumin/Creatinine [Mass Ratio] in Urine 298.0 eCW1 ([facility]) Microalbumin/Creatinine [Ratio] in Urine 138.6 eCW1 ([facility]) ID Date Data Source FREE T4 & TSH PANEL 05/21/2020 06:26:25 AM EDT eCW1 ([facility]) Name Value Range Interpretation Code Description Data Elma rce(s) Supporting Document(s) 0.608 eCW1 ([facility]) 0.97 eCW1 ([facility]) ID Date Data Source Comprehensive Metabolic Profile (CMP) 05/21/2020 06:25:55 AM EDT eCW1 ([facility]) Name Value Range Interpretation Code Description Data Elma rce(s) Supporting Document(s) 150 eCW1 ([facility]) 27 eCW1 ([facility]) 138 eCW1 ([facility]) 44.8 eCW1 ([facility]) 1.62 eCW1 ([facility]) 9.3 eCW1 ([facility]) 108 eCW1 ([facility]) 26 eCW1 ([facility]) 4.6 eCW1 ([facility]) 36 eCW1 ([facility]) 36 eCW1 ([facility]) 3.8 eCW1 ([facility]) 6.9 eCW1 ([facility]) 0.4 eCW1 ([facility]) 66 eCW1 ([facility]) 1.2 eCW1 ([facility]) ID Date Data Source PSA SCREENING 05/21/2020 06:25:40 AM EDT eCW1 ([facility]) Name Value Range Interpretation Code Description Data Elma rce(s) Supporting Document(s) 1.21 eCW1 ([facility]) ID Date Data Source [id number] 05/21/2020 06:25:37 AM EDT eCW1 ([facility]) Name Value Range Interpretation Code Description Data Elma rce(s) Supporting Document(s) Hemoglobin A1c/Hemoglobin.total in Blood 7.0 eCW1 ([facility]) ID Date Data Source CBC with Differential 05/20/2020 05:38:09 AM EDT eCW1 ([facility]) Name Value Range Interpretation Code Description Data Elma rce(s) Supporting Document(s) 8.3 eCW1 ([facility]) 13.1 eCW1 ([facility]) 4.07 eCW1 ([facility]) 38.8 eCW1 ([facility]) 32.2 eCW1 ([facility]) 12.9 eCW1 ([facility]) 33.8 eCW1 ([facility]) 95.3 eCW1 ([facility]) 171 eCW1 ([facility]) 64.6 eCW1 ([facility]) 23.0 eCW1 ([facility]) 3.5 eCW1 ([facility]) 8.1 eCW1 ([facility]) 0.6 eCW1 ([facility] [place]) 5.3 eCW1 ([facility]) 1.9 eCW1 ([facility]) 0.7 eCW1 ([facility]) 0.3 eCW1 ([facility]) 0.1 eCW1 ([facility]) Procedure Social History Code Duration Value Status Description Data Source(s ) Smoking 05/04/2021 12:00:00 AM EDT Former Smoker completed Former Smoker eCW1 ([facility]) Smoking 04/15/2021 12:00:00 AM EDT Former Smoker completed Former Smoker eCW1 ([facility]) Smoking 02/10/2021 12:00:00 AM EDT Former Smoker completed Former Smoker eCW1 ([facility]) Smoking 02/10/2021 12:00:00 AM EDT Former Smoker completed Former Smoker eCW1 ([facility]) Smoking 02/10/2021 12:00:00 AM EDT Former Smoker completed Former Smoker eCW1 ([facility]) Smoking 02/10/2021 12:00:00 AM EDT Former Smoker completed Former Smoker eCW1 ([facility]) Smoking 02/10/2021 12:00:00 AM EDT Former Smoker completed Former Smoker eCW1 ([facility]) Smoking 02/10/2021 12:00:00 AM EDT Former Smoker completed Former Smoker eCW1 ([facility]) Smoking 02/10/2021 12:00:00 AM EDT Former Smoker completed Former Smoker eCW1 ([facility]) Smoking 02/10/2021 12:00:00 AM EDT Former Smoker completed Former Smoker eCW1 ([facility]) Smoking 02/10/2021 12:00:00 AM EDT Former Smoker completed Former Smoker eCW1 ([facility]) Smoking 02/10/2021 12:00:00 AM EDT Former Smoker completed Former Smoker eCW1 ([facility]) Smoking 11/12/2020 12:00:00 AM EDT Former Smoker completed Former Smoker eCW1 ([facility]) Smoking 10/15/2020 12:00:00 AM EST Former Smoker completed Former Smoker eCW1 ([facility]) Smoking 09/03/2020 12:00:00 AM EST Former Smoker completed Former Smoker eCW1 ([facility]) Smoking 09/03/2020 12:00:00 AM EST Former Smoker completed Former Smoker eCW1 ([facility]) Smoking 05/20/2020 12:00:00 AM EDT Former Smoker completed Former Smoker eCW1 ([facility]) Vital Signs ID Date Data Source UNK Name Value Range Interpretation Code Description Data Source(s) Body weight 196 [lb_av] 196 [lb_av] eCW1 ([facility]) Body height 65.5 [in_i] 65.5 [in_i] eCW1 ([facility]) Body mass index (BMI) [Ratio] 32.12 kg/m2 32.12 kg/m2 eCW1 ([facility]) Heart rate 78 /min 78 /min eCW1 ([facility]) Respiratory rate 18 /min 18 /min eCW1 ([facility]) Body temperature 98.6 [degF] 98.6 [degF] eCW1 ( [facility]) Systolic blood pressure 120 mm[Hg] 120 mm[Hg] e CW1 ([facility]) Diastolic blood pressure 78 mm[Hg] 78 mm[Hg] eCW1 ([facility]) Body weight 196.7 [lb_av] 196.7 [lb_av] eCW1 ([facility]) Body height 65.5 [in_i] 65.5 [in_i] eCW1 ([facility]) Body mass index (BMI) [Ratio] 32.23 kg/m2 32.23 kg/m2 eCW1 ([facility]) Heart rate 82 /min 82 /min eCW1 ([facility]) Respiratory rate 18 /min 18 /min eCW1 ([facility]) Body temperature 98.7 [degF] 98.7 [degF] eCW1 ( [facility]) Systolic blood pressure 120 mm[Hg] 120 mm[Hg] e CW1 ([facility]) Diastolic blood pressure 70 mm[Hg] 70 mm[Hg] eCW1 ([facility]) Body weight 192.8 [lb_av] 192.8 [lb_av] eCW1 ([facility]) Body height 65.5 [in_i] 65.5 [in_i] eCW1 ([facility]) Body mass index (BMI) [Ratio] 31.59 kg/m2 31.59 kg/m2 eCW1 ([facility]) Heart rate 78 /min 78 /min eCW1 ([facility]) Respiratory rate 18 /min 18 /min eCW1 ([facility]) Body temperature 98.8 [degF] 98.8 [degF] eCW1 ( [facility]) Systolic blood pressure 122 mm[Hg] 122 mm[Hg] e CW1 ([facility]) Diastolic blood pressure 76 mm[Hg] 76 mm[Hg] eCW1 ([facility]) Body weight 197.4 [lb_av] 197.4 [lb_av] eCW1 ([facility]) Body height 65.5 [in_i] 65.5 [in_i] eCW1 ([facility]) Body mass index (BMI) [Ratio] 32.35 kg/m2 32.35 kg/m2 eCW1 ([facility]) Heart rate 86 /min 86 /min eCW1 ([facility]) Respiratory rate 18 /min 18 /min eCW1 ([facility]) Body temperature 98.7 [degF] 98.7 [degF] eCW1 ( [facility]) Systolic blood pressure 130 mm[Hg] 130 mm[Hg] e CW1 ([facility]) Diastolic blood pressure 70 mm[Hg] 70 mm[Hg] eCW1 ([facility]) Body weight 199.2 [lb_av] 199.2 [lb_av] eCW1 ([facility]) Body weight 90.36 kg 90.36 kg eCW1 ([facility]) Body height 65.5 [in_i] 65.5 [in_i] eCW1 ([facility]) Body mass index (BMI) [Ratio] 32.64 kg/m2 32.64 kg/m2 eCW1 ([facility]) Heart rate 86 /min 86 /min eCW1 ([facility]) Respiratory rate 20 /min 20 /min eCW1 ([facility]) Systolic blood pressure 132 mm[Hg] 132 mm[Hg] e CW1 ([facility]) Diastolic blood pressure 78 mm[Hg] 78 mm[Hg] eCW1 ([facility]) Heart rate 78 /min 78 /min eCW1 ([facility]) Respiratory rate 18 /min 18 /min eCW1 ([facility]) Body temperature 98.6 [degF] 98.6 [degF] eCW1 ( [facility]) Systolic blood pressure 140 mm[Hg] 140 mm[Hg] e CW1 ([facility]) Diastolic blood pressure 80 mm[Hg] 80 mm[Hg] eCW1 ([facility]) Body weight 197.4 [lb_av] 197.4 [lb_av] eCW1 ([facility]) Body height [in_i] eCW1 ([facility]) Body mass index (BMI) [Ratio] 32.35 kg/m2 32.35 kg/m2 eCW1 ([facility]) Body weight 194.2 [lb_av] 194.2 [lb_av] eCW1 ([facility]) Body height [in_i] eCW1 ([facility]) Body mass index (BMI) [Ratio] 31.82 kg/m2 31.82 kg/m2 eCW1 ([facility]) Heart rate 83 /min 83 /min eCW1 ([facility]) Respiratory rate 18 /min 18 /min eCW1 ([facility]) Body temperature 98.7 [degF] 98.7 [degF] eCW1 ( [facility]) Systolic blood pressure 130 mm[Hg] 130 mm[Hg] e CW1 ([facility]) Diastolic blood pressure 70 mm[Hg] 70 mm[Hg] eCW1 ([facility]) Patient Treatment Plan of Care Planned Activity Planned Date Details Description Data Source (s) FreeStyle Lite Test - 02/16/2021 12:00:00 AM EDT eCW1 ([facility]) FreeStyle Lite Test - 02/16/2021 12:00:00 AM EDT eCW1 ([facility]) FreeStyle Lite Test - 02/16/2021 12:00:00 AM EDT eCW1 ([facility]) FreeStyle Lite Test - 02/16/2021 12:00:00 AM EDT eCW1 ([facility]) FreeStyle Lite Test - 02/16/2021 12:00:00 AM EDT eCW1 ([facility]) FreeStyle Lite Test - 02/16/2021 12:00:00 AM EDT eCW1 ([facility]) FreeStyle Lite Test - 02/16/2021 12:00:00 AM EDT eCW1 ([facility]) FreeStyle Lite Test - 02/16/2021 12:00:00 AM EDT eCW1 ([facility]) Glucometer 02/11/2021 12:00:00 AM EDT e CW1 ([facility]) Glucometer 02/11/2021 12:00:00 AM EDT e CW1 ([facility]) Glucometer 02/11/2021 12:00:00 AM EDT e CW1 ([facility]) Glucometer 02/11/2021 12:00:00 AM EDT e CW1 ([facility]) Glucometer 02/11/2021 12:00:00 AM EDT e CW1 ([facility]) IGlucose Test Strips - 02/11/2021 12:00:00 AM EDT eCW1 ([facility]) Glucometer 02/11/2021 12:00:00 AM EDT e CW1 ([facility]) Glucometer 02/11/2021 12:00:00 AM EDT e CW1 ([facility]) Glucometer 02/11/2021 12:00:00 AM EDT e CW1 ([facility]) Glucometer 02/11/2021 12:00:00 AM EDT e CW1 ([facility]) Glucometer 02/11/2021 12:00:00 AM EDT e CW1 ([facility]) IGlucose Test Strips - 02/11/2021 12:00:00 AM EDT eCW1 ([facility]) gabapentin 300 MG Oral Capsule 02/10/2021 12:00:00 AM EDT eCW1 ([facility]) gabapentin 300 MG Oral Capsule 02/10/2021 12:00:00 AM EDT eCW1 ([facility]) gabapentin 300 MG Oral Capsule 02/10/2021 12:00:00 AM EDT eCW1 ([facility]) gabapentin 300 MG Oral Capsule 02/10/2021 12:00:00 AM EDT eCW1 ([facility]) gabapentin 300 MG Oral Capsule 02/10/2021 12:00:00 AM EDT eCW1 ([facility]) gabapentin 300 MG Oral Capsule 02/10/2021 12:00:00 AM EDT eCW1 ([facility]) gabapentin 300 MG Oral Capsule 02/10/2021 12:00:00 AM EDT eCW1 ([facility]) gabapentin 300 MG Oral Capsule 02/10/2021 12:00:00 AM EDT eCW1 ([facility]) gabapentin 300 MG Oral Capsule 02/10/2021 12:00:00 AM EDT eCW1 ([facility]) gabapentin 300 MG Oral Capsule 02/10/2021 12:00:00 AM EDT eCW1 ([facility]) Lisinopril 10 MG Oral Tablet 09/30/2020 12:00:00 AM EST eCW1 ([facility]) Lisinopril 10 MG Oral Tablet 09/30/2020 12:00:00 AM EST eCW1 ([facility]) Lisinopril 10 MG Oral Tablet 09/30/2020 12:00:00 AM EST eCW1 ([facility]) Lisinopril 10 MG Oral Tablet 09/30/2020 12:00:00 AM EST eCW1 ([facility]) Lisinopril 10 MG Oral Tablet 09/30/2020 12:00:00 AM EST eCW1 ([facility]) Lisinopril 10 MG Oral Tablet 09/30/2020 12:00:00 AM EST eCW1 ([facility]) Lisinopril 10 MG Oral Tablet 09/30/2020 12:00:00 AM EST eCW1 ([facility]) Lisinopril 10 MG Oral Tablet 09/30/2020 12:00:00 AM EST eCW1 ([facility]) Lisinopril 10 MG Oral Tablet 09/30/2020 12:00:00 AM EST eCW1 ([facility]) Lisinopril 10 MG Oral Tablet 09/30/2020 12:00:00 AM EST eCW1 ([facility]) Lisinopril 10 MG Oral Tablet 09/30/2020 12:00:00 AM EST eCW1 ([facility]) Lisinopril 10 MG Oral Tablet 09/30/2020 12:00:00 AM EST eCW1 ([facility]) Lisinopril 10 MG Oral Tablet 09/30/2020 12:00:00 AM EST eCW1 ([facility]) gabapentin 100 MG Oral Capsule 09/03/2020 12:00:00 AM EST eCW1 ([facility]) Lisinopril 10 MG Oral Tablet 09/03/2020 12:00:00 AM EST eCW1 ([facility]) gabapentin 100 MG Oral Capsule 09/03/2020 12:00:00 AM EST eCW1 ([facility]) gabapentin 100 MG Oral Capsule 09/03/2020 12:00:00 AM EST eCW1 ([facility]) Lisinopril 10 MG Oral Tablet 09/03/2020 12:00:00 AM EST eCW1 ([facility]) gabapentin 100 MG Oral Capsule 09/03/2020 12:00:00 AM EST eCW1 ([facility]) gabapentin 100 MG Oral Capsule 09/03/2020 12:00:00 AM EST eCW1 ([facility])
--- OUTSIDE RECORDS SUMMARY | 2021-06-10 06:11 | CCD ---
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 Activ e confirmed 755624379 Problem Type 2 diabetes mellitus without complications E11 .9 Active confirmed 874509287 Problem Microalbuminuria R80.9 Active confirmed 312 480496 Problem Other chronic pain G89.29 Active confirmed 8 2903227 Problem Essential hypertension I10 Active confirmed 29141495 Problem Gastroesophageal reflux disease without esophagitis K21.9 Active confirmed 674962395 Problem Need for pneumococcal vaccine Z23 Active confirm ed 228702771 Problem Chronic kidney disease, stage 3b N18.32 Active confirmed 527837177 Problem Stage 3b chronic kidney disease N18.32 Active confi rmed 283142993 Problem Type 2 diabetes mellitus with diabetic chronic kidney disease E11.22 Active confirmed 045718541 Problem Low back pain M54.5 Active confirmed 599770 009 ALLERGIES Allergen (clinical drug ingredient) Drug/Non Drug Allergy do cumented on EMR Reaction Allergy Type Onset Date Status Sulfa (for allergy use only) Anaphylaxis Drug Allergy Active ENCOUNTERS from 1945 to 2021-04-15 Encounter Location Date Provider Diagnosis [facility] [address] [place] [address] Mar, Ania Fernandez Type 2 diabetes mellitus with diabetic c hronic kidney disease E11.22 ; Chronic kidney disease, stage 3b N18.32 ; Essential hypertension I10 ; Microalbuminuria R80.9 and Encounter for other preprocedural examination Z01.818 IMMUNIZATIONS Vaccine Route Administration Date Status COVID-19 [...] Education Language: Question Answer Notes Languages spoken: [place] Domestic Violence: Question Answer Notes Status: Drug [...] FOR REFERRAL No Information VITAL SIGNS Weight 196.7 lbs Mar, Height 65.5 in Mar, BMI 32.23 kg/m2 Mar, Heart Rate 82 /min Mar, Respiratory Rate 18 /min Mar, Temperature 98.7 degrees Fahrenheit Mar, Oximetry 96 Mar, Blood pressure systolic 120 mm Hg Mar, Blood pressure diastolic 70 mm Hg Mar, MEDICATIONS Medication SIG (Take, Route, Frequency, Duration) Notes Start Da te End Date Status Gabapentin 300 MG 1 capsule Orally three times a day for 90 days Jan, Active Glucometer as directed dx. E11.9 Jan, A ctive Lantus SoloStar 100 UNIT/ML 35 units Subcutaneous Daily Active Lisinopril 20 MG 1 (prior auth#:[id number]) Oral daily with 10 mg tab for 90 days Active Sure Comfort Pen [place] 31G X 5 MM USE 1 NEEDLE ONCE DAILY Active Atorvastatin Calcium 20 MG 1 tablet Oral Daily for 90 days Active Omeprazole 20 MG 1 capsule 30 minutes before morning meal Orally Once a day for 90 days Active Lisinopril 10 MG 1 tablet Orally Once a day with 20 mg tablet fo r 90 days 11 Sep, 2020 Active FreeStyle Lite Test - as directed In Vitro DX:E11.9 bid for 100 days 30 Jan, 2021 Active PROCEDURES No Information RESULTS No Results REASON FOR VISIT Pre-op for right cataract removal with . Pt will have local MAC.Surge ry date 04/29/2021. DX:[id number]:[phone] MEDICAL (GENERAL) HISTORY Type Description Date Medical History Diabetes on Insulin - Diagn osed ~ 2015 - Did not toerate oral meds Medical History Hyperlipidemia Medical History HTN Medical History CAD s/p [place] 1994 Medical History Osteoarthritis Medical History Spinal Stenosis - Diagnosed in [place] - declined surgical management Medical History GERD Medical History CKD stage 3b Surgical History knee surgery right 1966 Surgical History Lasix Surgery Bilateral 1966 Hospitalization History [place] Stress Related 1996 Goals Section No Information Health Concerns No Information MEDICAL EQUIPMENT No Information MENTAL STATUS No Information FUNCTIONAL STATUS No Information ASSESSMENTS Encounter Date Diagnosis Assessment Notes Treatment Notes Treatm ent Clinical Notes Mar, Type 2 diabetes mellitus wit h diabetic chronic kidney disease (ICD- 10 - E11.22) Mar, Chronic kidney disease, stage 3b (ICD-10 - N18.3 2) Mar, Essential hypertension (ICD-10 - I10) Mar, Microalbuminuria (ICD-10 - R80.9) Mar, Encounter for other preprocedural examination (I CD-10 - Z01.818) I discussed the risks vs. benefits of surgery with the patient in generic terms. I feel that he is at average risk for perioperative complications. He knows that there is always some risk with surgery and he has to be comfortable that, for him, the benefits of surgery outweigh the risks in order to proceed. If he has further questions regarding the specifics of the proposed surgical procedure and specific risks, he should discuss them with the surgeon. EKG - NSR 64 bpm, LAD, consider LAFB - no old for compariison I feel that the patient's acute and chronic medical conditions are fully optimized at the present time. There are no readily alterable factors that could lower the patient's perioperative risk. I have recommended the patient stop all medications as recommended by their surgeon and anesthesia. In addition I recommend that he cut his insulin to 20 units the night before the procedure. Hold medson morning opf procedure Take all other meds on evening before as usual including Lisinopril, Ator vastatin, Gabapentin PLAN OF TREATMENT Treatment Notes Assessment Notes Clinical Notes Encounter for other preprocedural examination I discus sed the risks vs. benefits of surgery with the patient in generic terms. I feel that he is at average risk for perioperative complications. He knows that there is always some risk with surgery and he has to be comfortable that, for him, the benefits of surgery outweigh the risks in order to proceed. If he has further questions regarding the specifics of the proposed surgical procedure and specific risks, he should discuss them with the surgeon.EKG - NSR 64 bpm, LAD, consider LAFB - no old for compariisonI feel that the patient's acute and chronic medical conditions are fully optimized at the present time. There are no readily alterable factors that could lower the patient's perioperative risk.I have recommended the patient stop all medications as recommended by their surgeon and anesthesia. In addition I recommend that he cut his insulin to 20 units the night before the procedure.Hold medson morning opf procedureTake all other meds on evening before as usual including Lisinopril, Atorvastatin, Gabapentin Future Test Test Name Order Date HEMOGLOBIN A1c [id number] CBC - Complete Blood Count [id number] Comprehensive Metabolic Profile (CMP) [id number] Next Appt Details as scheduled , labs prior Reason: Provider Name:Ania Fernandez, 2021-04 09:00:00 AM, [address] [address], , [place], [address], Insurance Providers Payer Name Payer Address Payer Phone Insured Name Patient Relati onship to Insured Coverage Start Date Coverage End Date MEDICARE Part A and B [address] [facility] [phone] [employer] [address] [facility] [address] [employer] AR[employer]AZ[employer]
--- OUTSIDE RECORDS SUMMARY | 2021-06-10 06:11 | CCD ---
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 Activ e confirmed 324422952 Problem Type 2 diabetes mellitus without complications E11 .9 Active confirmed 748028229 Problem Microalbuminuria R80.9 Active confirmed 312 344476 Problem Other chronic pain G89.29 Active confirmed 8 7646254 Problem Essential hypertension I10 Active confirmed 93382439 Problem Gastroesophageal reflux disease without esophagitis K21.9 Active confirmed 947832196 Problem Need for pneumococcal vaccine Z23 Active confirm ed 165420305 Problem Chronic kidney disease, stage 3b N18.32 Active confirmed 660704207 Problem Stage 3b chronic kidney disease N18.32 Active confi rmed 319000372 Problem Type 2 diabetes mellitus with diabetic chronic kidney disease E11.22 Active confirmed 690259057 Problem Low back pain M54.5 Active confirmed 361960 009 ALLERGIES Allergen (clinical drug ingredient) Drug/Non Drug Allergy do cumented on EMR Reaction Allergy Type Onset Date Status Sulfa (for allergy use only) Anaphylaxis Drug Allergy Active ENCOUNTERS from 1945 to 2021-03-30 Encounter Location Date Provider Diagnosis [facility] [address] [place] [address] Mar, Ania Fernandez Type 2 diabetes mellitus with diabetic c hronic kidney disease E11.22 IMMUNIZATIONS Vaccine Route Administration Date Status COVID-19 dose #2 given elsewhere Unspecified Unknown Oct 09, 2020 Administered COVID-19 dose #1 given elsewhere Unspecified Unknown Sep 18, 2020 Administered Pneumococcal Adult 0.5mL Pneumovax 23 IM Intramuscular May 20 020 Administered SOCIAL HISTORY Tobacco Use: Social History [...] Sep, Active Lisinopril 20 MG 1 (prior auth#:[id number]) Oral daily with 10 mg tab for 90 days Active Sure Comfort Pen [place] 31G X 5 MM USE 1 NEEDLE ONCE DAILY Active Gabapentin 300 MG 1 capsule Orally three times a day for 90 days Jan, Active PROCEDURES No Information RESULTS No Results REASON FOR VISIT call back MEDICAL (GENERAL) HISTORY Type Description Date Medical History Diabetes on Insulin - Diagn osed ~ 2015 - Did not toerate oral meds Medical History Hyperlipidemia Medical History HTN Medical History CAD s/p [place] 1994 Medical History Osteoarthritis Medical History Spinal Stenosis - Diagnosed in [place] - declined surgical management Medical History GERD Medical History CKD stage 3b Surgical History knee surgery right 1967 Surgical History Lasix Surgery Bilateral 1967 Hospitalization History [place] Stress Related 1996 Goals Section No Information Health Concerns No Information MEDICAL EQUIPMENT No Information MENTAL STATUS No Information FUNCTIONAL STATUS No Information ASSESSMENTS Encounter Date Diagnosis Assessment Notes Treatment Notes Treatm ent Clinical Notes Mar, Type 2 diabetes mellitus wit h diabetic chronic kidney disease (ICD- 10 - E11.22) PLAN OF TREATMENT Medication Medication Name Sig Start Date Stop Date Lantus SoloStar 100 UNIT/ML 40 units Subcutaneous Daily Lisinopril 20 MG 1 (prior auth#:[id number]) Oral daily with 10 mg tab for 90 days Sure Comfort Pen [place] 31G X 5 MM USE 1 NEEDLE [...] Details Provider Name:Ania Fernandez, 2021-03 10:30:00 AM, [address], , [place], [address], Provider Name:Ania Fernandez, 2021-04 09:00:00 AM, [address], , [place], [address], Insurance Providers Payer Name Payer Address Payer Phone Insured Name Patient Relati onship to Insured Coverage Start Date Coverage End Date MEDICARE Part A and B [address] [facility] [phone] [employer] [address] [facility] [address] LANDRY ARRIAZA
[2021-06-10] MEDS ORDERED: PHENYLEPHRINE 1.5%/LIDOCAINE 1% INTRAOCULAR 0.8ML SYRINGE As Ordered ONE (06:44)
[2021-06-10] MEDS ORDERED: ACETYLCHOLINE OPHTH SOLN 1% 2ML (MIOCHOL-E) As Ordered ONE (06:44)
[2021-06-10] MEDS ORDERED: DUOVISC (0.50ML VISCOAT/0.85ML PROVISC) OPHTH KIT As Ordered ONE (06:44)
[2021-06-10] MEDS: OFLOXACIN 0.3 % (OCUFLOX) OPTH SOL 5ML OS SCH ×3 (06:44→07:07)
[2021-06-10] MEDS: TROPICAMIDE 1% OPHTH SOLN 2ML OS SCH ×3 (06:45→07:07)
[2021-06-10] MEDS ORDERED: CEFUROXIME 1MG/0.1ML INTRACAMERAL INJ As Ordered ONE (06:45)
[2021-06-10] MEDS: PHENYLEPHRINE 2.5% OPHTH SOL 2ML OS SCH ×3 (06:45→07:07)
[2021-06-10] MEDS ORDERED: BSS IRR 500ML/OMIDRIA 4ML IRR BAG (OR ONLY) As Ordered ONE (06:46)
[2021-06-10] MEDS ORDERED: fentaNYL 100 MCG/2 ML INJECTION (J3010) As Ordered ONE (06:59)
[2021-06-10] MEDS ORDERED: MIDAZOLAM INJ 2MG/2ML VIAL (J2250 PER 1MG) As Ordered ONE (06:59)
[2021-06-10 08:17] VITALS: BP 152/77
--- NOTE | 2021-06-10 13:52 | ROOPDOC ---
[facility] Report Of Operation Report of Operation PREPROCEDURE DIAGNOSES: Mature cataract left eye. POSTPROCEDURE DIAGNOSES: Same. PROCEDURE PERFORMED: Phacoemulsification cataract extraction implantation intraocular lens left eye. SURGEON: Ahmet Colon MD [employer] SUPERVISOR: None ANESTHESIA: MAC. ESTIMATED BLOOD LOSS: Approximately 0 cc mL. COMPLICATIONS: None. LENS: 29.0. diopters SPECIMENS REMOVED: None INDICATIONS: Patient experienced decreased vision associated with cataract formation. Slit-lamp examination confirmed the diagnosis. Informed consent was obtained for removal of the cataract and placement of intraocular lens. PROCEDURE NOTE: Patient was identified in the holding room and the operative eye was marked. Patient was wheeled spine the OR suite and positioned on the stretcher. The lids lashes and periocular face of the operative eye were prepped with 5% povidone iodine. The lashes were taped with a Tegaderm dressing. A speculum was placed in the operative eye. 1 mm side-port was created. 1% preservative-free lidocaine was injected. Viscoat was injected. A 2.6 mm stepped groove clear cornea incision was made temporally. A bent cystotome needle and Utrata forceps were used to fashion a continuous cu rvilinear capsulorhexis. BSS was used to hydrodissect. The lens was found to rotate freely. The lens was phacoemulsified using a divide and conquer technique. Residual cortex was removed with the I/A. Provisc was injected to expand the capsular bag. The lens was injected using the lens delivery system and positioned with a Sharif hook. Residual viscoelastic was removed with the I/A. BSS was used to hydrate the corneal wound. Antibiotic prophylaxis was injected. The speculum was removed from the eye. A shield was taped over the eye. The patient was sent in excellent condition to the recovery room with a shield. AHMET COLON M.D. Jun 10, 2021 13:52
== END 2021-06-10 08:23 | disposition home or self-care (01) ==
LOC: M SDC 06:08
PROVIDERS: ATTEND Ophthalmology
DX: H25.12 Age-related nuclear cataract, left eye (principal); E11.22 Type 2 diabetes mellitus with diabetic chronic kidney disease; I10 Essential (primary) hypertension; E78.5 Hyperlipidemia, unspecified; K21.9 Gastro-esophageal reflux disease without esophagitis; M19.90 Unspecified osteoarthritis, unspecified site; Z79.899 Other long term (current) drug therapy; Z79.4 Long term (current) use of insulin; Z87.891 Personal history of nicotine dependence; Z88.2 Allergy status to sulfonamides
CPT/HCPCS: 66984; J1097; J2250; J3010; V2632

== ENCOUNTER → 2021-08-08 | Outpatient (CLI) | payer MEDICARE, OTHER ==
[~2021-08-08] MED LIST changes: +OMEP-173 PO; -OMEP-218 PO; -PROPARACAINE 0.5% OPHTH SOL 15ML OS ONE
[2021-08-08 10:45] LABS: HEMATOCRIT 42.4 % (42.0-52.0); HEMOGLOBIN 14.4 g/dl (13.5-17.5); MEAN CORPUSCULAR HEMOGLOBIN 31.6 pg (27.0-33.0); PLATELET COUNT, AUTOMATED 144 10^3/uL (150-450); RED BLOOD COUNT 4.56 10^6/uL (4.30-6.10); WHITE BLOOD COUNT 7.3 10^3/uL (4.0-10.0)
[2021-08-08 11:07] LABS: ALBUMIN 3.9 GM/DL (3.2-5.2); BILIRUBIN,TOTAL 0.6 MG/DL (0.2-1.0); CALCIUM LEVEL 9.4 MG/DL (8.8-10.2); CREATININE FOR GFR 1.58 MG/DL (0.70-1.30); POTASSIUM SERUM 4.2 MEQ/L (3.5-5.1); TOTAL PROTEIN 6.8 GM/DL (6.4-8.2)
[2021-08-08 11:39] LABS: HEMOGLOBIN A1c 6.9 %
== END ==
LOC: M PLALAB 08:19
PROVIDERS: ATTEND Physician Assistant
DX: E11.22 Type 2 diabetes mellitus with diabetic chronic kidney disease (principal)

== ENCOUNTER → 2022-02-14 | Outpatient (REF) | payer MEDICARE, OTHER ==
[2022-02-14 13:23] LABS: HEMATOCRIT 39.8 % (42.0-52.0); HEMOGLOBIN 13.2 g/dl (13.5-17.5); MEAN CORPUSCULAR HEMOGLOBIN 30.8 pg (27.0-33.0); MEAN CORPUSCULAR HGB CONC 33.2 g/dl (32.0-36.5); PLATELET COUNT, AUTOMATED 146 10^3/uL (150-450); RED BLOOD COUNT 4.28 10^6/uL (4.30-6.10); WHITE BLOOD COUNT 6.6 10^3/uL (4.0-10.0)
[2022-02-14 13:56] LABS: HEMOGLOBIN A1c 7.1 %
[2022-02-14 14:08] LABS: ALBUMIN 3.7 GM/DL (3.2-5.2); BILIRUBIN,TOTAL 0.7 MG/DL (0.2-1.0); CHOLESTEROL RISK RATIO 3.722 (<5); CREATININE FOR GFR 1.68 MG/DL (0.70-1.30); FREE T4 0.98 NG/DL (0.76-1.46); GLOMERULAR FILTRATION RATE 42.7 (>42); MAU/CREAT RATIO 188.2 MCG/MG (0.0-30.0); POTASSIUM SERUM 4.5 MEQ/L (3.5-5.1); THYROID STIMULATING HORMONE 1.05 uIU/ML (0.358-3.740); TOTAL PROTEIN 6.6 GM/DL (6.4-8.2)
== END ==
LOC: M SFHCADAM 07:56
PROVIDERS: ATTEND Physician Assistant
DX: E11.22 Type 2 diabetes mellitus with diabetic chronic kidney disease (principal); N18.32 Chronic kidney disease, stage 3b; I12.9 Hypertensive chronic kidney disease with stage 1 through stage 4 chronic kidney disease, or unspecified chronic kidney disease; Z12.5 Encounter for screening for malignant neoplasm of prostate
CPT/HCPCS: 80053; 80061; 82043; 83036; 84439; 84443; 85027; G0103

== ENCOUNTER → 2022-04-18 | Outpatient (REF) | payer MEDICARE, OTHER ==
[2022-04-18 12:57] LABS: BASO # 0.1 10^3/uL (0.0-0.2); BASO % 1.3 % (0.0-1.0); EOS # 0.3 10^3/uL (0.0-0.5); EOS % 4.1 % (0.0-3.0); HEMATOCRIT 40.3 % (42.0-52.0); HEMOGLOBIN 13.6 g/dl (13.5-17.5); LYMPH # 1.8 10^3/uL (1.5-5.0); LYMPH % 24.5 % (24.0-44.0); MEAN CORPUSCULAR HEMOGLOBIN 31.8 pg (27.0-33.0); MEAN CORPUSCULAR HGB CONC 33.7 g/dl (32.0-36.5); MEAN CORPUSCULAR VOLUME 94.2 fl (80.0-96.0); MONO # 0.6 10^3/uL (0.0-0.8); MONO % 7.7 % (2.0-8.0); NEUTROPHILS # 4.4 10^3/uL (1.5-8.5); NEUTROPHILS % 61.8 % (36.0-66.0); PLATELET COUNT, AUTOMATED 142 10^3/uL (150-450); RED BLOOD COUNT 4.28 10^6/uL (4.30-6.10); WHITE BLOOD COUNT 7.1 10^3/uL (4.0-10.0)
[2022-04-18 15:10] LABS: CREATININE FOR GFR 1.68 MG/DL (0.70-1.30); GLOMERULAR FILTRATION RATE 42.7 (>42); POTASSIUM SERUM 4.3 MEQ/L (3.5-5.1)
[2022-04-18 19:53] LABS: HEMOGLOBIN A1c 7.3 %
== END ==
LOC: M SFHCADAM 07:51
PROVIDERS: ATTEND Physician Assistant
DX: E11.22 Type 2 diabetes mellitus with diabetic chronic kidney disease (principal); I12.9 Hypertensive chronic kidney disease with stage 1 through stage 4 chronic kidney disease, or unspecified chronic kidney disease; N18.30 Chronic kidney disease, stage 3 unspecified

== ENCOUNTER → 2023-02-02 | Outpatient (REF) | payer MEDICARE, OTHER ==
[2023-02-02 12:52] LABS: HEMATOCRIT 41.6 % (42.0-52.0); HEMOGLOBIN 13.6 g/dl (13.5-17.5); MEAN CORPUSCULAR HEMOGLOBIN 31.6 pg (27.0-33.0); MEAN CORPUSCULAR HGB CONC 32.7 g/dl (32.0-36.5); MEAN CORPUSCULAR VOLUME 96.5 fl (80.0-96.0); PLATELET COUNT, AUTOMATED 157 10^3/uL (150-450); RED BLOOD COUNT 4.31 10^6/uL (4.30-6.10); WHITE BLOOD COUNT 7.9 10^3/uL (4.0-10.0)
[2023-02-02 13:10] LABS: HEMOGLOBIN A1c 8.7 % (4.0-6.0)
[2023-02-02 13:22] LABS: MAU/CREAT RATIO 238.7 MCG/MG (0.0-30.0)
[2023-02-02 13:28] LABS: ALBUMIN 3.9 G/DL (3.2-5.2); BILIRUBIN,TOTAL 0.6 MG/DL (0.3-1.2); CALCIUM LEVEL 9.1 MG/DL (8.3-10.6); CHOLESTEROL RISK RATIO 3.75 (<5); CREATININE FOR GFR 1.68 MG/DL (0.70-1.30); GLOMERULAR FILTRATION RATE 42.6 (>42); HDL CHOLESTEROL 38.6 MG/DL (>40); LDL CHOLESTEROL 67.6 MG/DL (<100); NON-HDL-C 106.4 MG/DL; POTASSIUM SERUM 4.6 MMOL/L (3.5-5.1); THYROID STIMULATING HORMONE 1.319 uIU/ML (0.55-4.78); TOTAL PROTEIN 6.6 G/DL (5.7-8.2)
[2023-02-02 13:29] LABS: FREE T4 0.93 NG/DL (0.89-1.76)
== END ==
LOC: M SFHCADAM 07:31
PROVIDERS: ATTEND Physician Assistant
DX: E78.00 Pure hypercholesterolemia, unspecified (principal); E11.22 Type 2 diabetes mellitus with diabetic chronic kidney disease; Z12.5 Encounter for screening for malignant neoplasm of prostate; I12.9 Hypertensive chronic kidney disease with stage 1 through stage 4 chronic kidney disease, or unspecified chronic kidney disease
CPT/HCPCS: 80053; 80061; 82043; 83036; 84439; 84443; 85027; G0103

== ENCOUNTER → 2023-02-21 | Outpatient (REF) | payer OTHER | LOC: M SFHCADAM 16:51 | PROVIDERS: ATTEND Physician Assistant | DX: M54.2 Cervicalgia (principal); M25.511 Pain in right shoulder; M25.512 Pain in left shoulder ==

== ENCOUNTER → 2023-02-22 | Outpatient (CLI) | payer OTHER | LOC: M PLALAB 14:04 | PROVIDERS: ATTEND Physician Assistant | DX: M54.2 Cervicalgia (principal); M25.511 Pain in right shoulder; M25.512 Pain in left shoulder ==

== ENCOUNTER → 2023-03-16 | Outpatient (CLI) | payer OTHER | LOC: M PLARAD 13:03 | PROVIDERS: ATTEND Physician Assistant | DX: M54.2 Cervicalgia (principal); M25.511 Pain in right shoulder; M25.512 Pain in left shoulder ==

== ENCOUNTER → 2023-03-30 | Outpatient (REF) | payer OTHER ==
[2023-03-30 13:14] LABS: CALCIUM LEVEL 9.2 MG/DL (8.3-10.6); CREATININE FOR GFR 1.68 MG/DL (0.70-1.30); GLOMERULAR FILTRATION RATE 42.6 (>42); POTASSIUM SERUM 4.5 MMOL/L (3.5-5.1)
== END ==
LOC: M SFHCADAM 10:08
PROVIDERS: ATTEND Physician Assistant
DX: E11.22 Type 2 diabetes mellitus with diabetic chronic kidney disease (principal)

== ENCOUNTER → 2023-04-30 | Outpatient (REF) | payer OTHER ==
[2023-04-30 14:40] LABS: HEMOGLOBIN A1c 9.2 % (4.0-6.0)
[2023-04-30 14:50] LABS: CALCIUM LEVEL 8.8 MG/DL (8.3-10.6); CREATININE FOR GFR 1.83 MG/DL (0.70-1.30); GLOMERULAR FILTRATION RATE 38.6 (>42); POTASSIUM SERUM 4.8 MMOL/L (3.5-5.1)
== END ==
LOC: M SFHCADAM 08:17
PROVIDERS: ATTEND Physician Assistant
DX: E11.22 Type 2 diabetes mellitus with diabetic chronic kidney disease (principal)

== ENCOUNTER → 2024-01-21 | Outpatient (REF) | payer OTHER ==
[~2024-01-21] MED LIST changes: +CENT1TAB12 PO; +CVS1CAP2 PO; +DOXY100T PO; +DULA3PEN SC; +GABA600T4 PO; +LEVO1TAB40 PO; +OYST1TAB PO
[2024-01-21 13:34] LABS: BASO % 0.5 % (0.0-1.0); EOS # 0.1 10^3/uL (0.0-0.5); EOS % 1.5 % (0.0-3.0); HEMATOCRIT 39.1 % (42.0-52.0); HEMOGLOBIN 12.7 g/dl (13.5-17.5); LYMPH # 1.3 10^3/uL (1.5-5.0); LYMPH % 16.5 % (24.0-44.0); MEAN CORPUSCULAR HEMOGLOBIN 32.2 pg (27.0-33.0); MEAN CORPUSCULAR HGB CONC 32.5 g/dl (32.0-36.5); MONO # 0.6 10^3/uL (0.0-0.8); MONO % 7.1 % (2.0-8.0); NEUTROPHILS % 73.8 % (36.0-66.0); PLATELET COUNT, AUTOMATED 286 10^3/uL (150-450); RED BLOOD COUNT 3.95 10^6/uL (4.30-6.10); WHITE BLOOD COUNT 8.1 10^3/uL (4.0-10.0)
[2024-01-21 13:37] LABS: C REACTIVE PROTEIN QUANTITATIV 0.5 MG/DL (<1.0)
[2024-01-21 13:38] LABS: CREATININE FOR GFR 2.15 MG/DL (0.70-1.30); POTASSIUM SERUM 4.9 MMOL/L (3.5-5.1)
== END ==
LOC: M SFHCADAM 09:32
PROVIDERS: ATTEND Physician Assistant
DX: I10 Essential (primary) hypertension (principal)

== ENCOUNTER → 2024-01-30 | Outpatient (REF) | payer OTHER ==
[2024-01-30 13:36] LABS: ALBUMIN 3.3 G/DL (3.2-5.2); BILIRUBIN,TOTAL 0.4 MG/DL (0.3-1.2); CALCIUM LEVEL 9.3 MG/DL (8.3-10.6); CHOLESTEROL RISK RATIO 4.1 (<5); CREATININE FOR GFR 1.49 MG/DL (0.70-1.30); FREE T4 0.93 NG/DL (0.89-1.76); GLOMERULAR FILTRATION RATE 48.8 (>42); HDL CHOLESTEROL 35.1 MG/DL (>40); LDL CHOLESTEROL 58.3 MG/DL (<100); NON-HDL-C 108.9 MG/DL; POTASSIUM SERUM 4.6 MMOL/L (3.5-5.1); TOTAL PROTEIN 6.2 G/DL (5.7-8.2)
[2024-01-30 13:37] LABS: HEMATOCRIT 40.1 % (42.0-52.0); HEMOGLOBIN 13.2 g/dl (13.5-17.5); MEAN CORPUSCULAR HEMOGLOBIN 31.9 pg (27.0-33.0); MEAN CORPUSCULAR HGB CONC 32.9 g/dl (32.0-36.5); MEAN CORPUSCULAR VOLUME 96.9 fl (80.0-96.0); PLATELET COUNT, AUTOMATED 154 10^3/uL (150-450); RED BLOOD COUNT 4.14 10^6/uL (4.30-6.10); THYROID STIMULATING HORMONE 1.243 uIU/ML (0.55-4.78); WHITE BLOOD COUNT 8.4 10^3/uL (4.0-10.0)
[2024-01-30 14:09] LABS: CREATININE, URINE 121.7 MG/DL; MAU/CREAT RATIO 185.7 MCG/MG (0.0-30.0)
[2024-01-30 14:16] LABS: HEMOGLOBIN A1c 7.7 % (4.0-6.0)
== END ==
LOC: M SFHCADAM 07:59
PROVIDERS: ATTEND Physician Assistant
DX: E11.22 Type 2 diabetes mellitus with diabetic chronic kidney disease (principal); N18.32 Chronic kidney disease, stage 3b; L98.9 Disorder of the skin and subcutaneous tissue, unspecified; E78.00 Pure hypercholesterolemia, unspecified; M48.062 Spinal stenosis, lumbar region with neurogenic claudication

== ENCOUNTER → 2024-02-25 | Outpatient (CLI) | payer OTHER | LOC: M CARPUL 09:06 | PROVIDERS: ATTEND Physician Assistant | DX: R06.09 Other forms of dyspnea (principal); R60.0 Localized edema ==

== ENCOUNTER → 2024-05-05 | Outpatient (CLI) | payer OTHER ==
[~2024-05-05] MED LIST changes: +GABA-1490 PO; -GABA600T4 PO
== END ==
LOC: M PLAIMG 12:41
PROVIDERS: ATTEND Physician Assistant
DX: J18.9 Pneumonia, unspecified organism (principal)